=== PATIENT | female | born 1955 | race Caucasian/White ===

== ENCOUNTER 2024-04-05 10:51 | Outpatient (CLI) | payer MEDICARE, SELFPAY | END 2024-04-05 10:52 | disposition home or self-care (01) | LOC: ANHAUDASC 10:54 | PROVIDERS: PCP Otolaryngology; Visit Provider Otolaryngology | DX: H90.3 Sensorineural hearing loss, bilateral (principal); H93.11 Tinnitus, right ear; H61.23 Impacted cerumen, bilateral; J31.0 Chronic rhinitis; R09.81 Nasal congestion | CPT/HCPCS: 92557; 92567 ==